=== PATIENT | female | born 1955 | race Caucasian/White ===

== ENCOUNTER → 2017-02-22 | Outpatient (CLI) | payer MEDICAID | LOC: FIMAGING 14:03 | PROVIDERS: ATTEND Internal Medicine Hematology & Oncology | DX: Z12.31 Encounter for screening mammogram for malignant neoplasm of breast (principal); Z85.3 Personal history of malignant neoplasm of breast | CPT/HCPCS: G0202-52 ==

== ENCOUNTER → 2017-04-23 | Outpatient (CLI) | payer MEDICAID | LOC: FIMAGING 13:35 | PROVIDERS: ATTEND Psychiatry & Neurology Neurology | DX: R94.02 Abnormal brain scan (principal); R48.2 Apraxia ==

== ENCOUNTER → 2018-04-20 | Outpatient (CLI) | payer MEDICAID | LOC: FIMAGING 14:20 | PROVIDERS: ATTEND Internal Medicine Hematology & Oncology | DX: Z13.820 Encounter for screening for osteoporosis (principal); M18.0 Bilateral primary osteoarthritis of first carpometacarpal joints; Z78.0 Asymptomatic menopausal state ==

== ENCOUNTER → 2018-10-26 | Outpatient (CLI) | payer MEDICAID | LOC: GIMAGING 14:49 | PROVIDERS: ATTEND Family Medicine | DX: R05 Cough (principal); R06.02 Shortness of breath; S22.060A Wedge compression fracture of T7-T8 vertebra, initial encounter for closed fracture; M81.0 Age-related osteoporosis without current pathological fracture | CPT/HCPCS: 71046-PO ==